=== PATIENT | male | born 1995 | race Caucasian/White ===

== ENCOUNTER 2017-07-09 16:07 | Emergency (ER) | payer SELFPAY ==
[~2017-07-09] VITALS: Ht 190.5 cm; Wt 135.0 kg
[~2017-07-09 16:07] MED LIST: NAPR500 PO; TRAM50 PO
[2017-07-09 16:32] VITALS: BP 162/73; PULSE 80; RESP 16; TEMP 98.4; O2SAT 97
--- NOTE | 2017-07-09 18:12 | PD ---
HPI Chief Complaint: Abdominal Pain Time Seen by Provider: 18:02 Travel History International Travel<30 days: No Contact w/Intl Traveler<30days: No Traveled to known affect area: No History of Present Illness HPI This patient complains of abdominal pain. Started in his right side this morning. Duration one day. Severity was moderate. Has somewhat improved spontaneously. No alleviating factors. No exacerbating factors. Pain radiated down to the suprapubic region. He denies urinary complaints or hematuria or fever or vomiting. He ate today without difficulty. No abdominal surgeries PFSH Past Medical History Immunizations Current: Yes Past Surgical History Other Surgery: Yes (R KNEE, ELBOW) Social History Alcohol Use: No Tobacco Use: No Substance Use: No Allergies-Medications (Allergen,Severity, Reaction): Coded Allergies: No Known Allergies (Verified , 07/09/17) Reported Meds & Prescriptions Reported Meds & Active Scripts Active Review of Systems General / Constitutional: No: Fever Eyes: No: Visual changes HENT: No: Headaches Cardiovascular: No: Chest Pain or Discomfort Respiratory: No: Shortness of Breath Gastrointestinal: Positive: Abdominal Pain Genitourinary: Positive: Flank Pain, No: Dysuria Musculoskeletal: No: Pain Skin: No Rash Neurologic: No: Weakness Psychiatric: No: Depression Endocrine: No: Polydipsia Hematologic/Lymphatic: No: Easy Bruising Physical Exam Narrative GENERAL: Well-nourished, well-developed patient in no apparent distress. SKIN: Focused skin assessment reveals no rash and nodules. Skin is Warm and dry. HEAD: Atraumatic. Normocephalic. EYES: Pupils equal and round. No scleral icterus. No injection or drainage. ENT: No nasal bleeding or discharge. Mucous membranes pink and moist. NECK: Trachea midline. No JVD. CARDIOVASCULAR: Regular rate and rhythm. No murmur appreciated. RESPIRATORY: No accessory muscle use. Clear to auscultation. Breath sounds equal bilaterally. GASTROINTESTINAL: Abdomen soft, non-tender, nondistended. Hepatic and splenic margins not palpable. MUSCULOSKELETAL: No obvious deformities. No clubbing. No cyanosis. No edema. NEUROLOGICAL: Awake and alert. No obvious cranial nerve deficits. Motor grossly within normal limits. Normal speech. PSYCHIATRIC: Appropriate mood and affect; insight and judgment normal. Data Data Last Documented VS Vital Signs Date Time Temp Pulse Resp B/P (MAP) Pulse Ox O2 Delivery O2 Flow Rate FiO2 07/09/17 16:32 98.4 80 16 162/73 (102) 97 Orders Orders Urinalysis - C+S If Indicated (07/09/17 18:06) Ct Abd/Pel W/O Iv Contrast (07/09/17 ) Labs Laboratory Tests Test 07/09/17 18:10 Urine Color YELLOW Urine Turbidity CLEAR Urine pH 6.0 Urine Specific [place] 1.010 Urine Protein NEG mg/dL Urine Glucose (UA) NEG mg/dL Urine Ketones NEG mg/dL Urine Occult Blood NEG Urine Nitrite NEG Urine Bilirubin NEG Urine Leukocyte Esterase NEG Urine Squamous Epithelial Cells 0-5 /hpf Microscopic Urinalysis Comment CULT NOT INDICATED MDM Medical Decision Making Medical Screen Exam Complete: Yes Emergency Medical Condition: Yes Medical Record Reviewed: Yes Differential Diagnosis Kidney stone, sciatica, colitis Narrative Course I have reviewed the patient's electronic medical record. Urinalysis is clean CT of abdomen and pelvis shows no sign of appendicitis or kidney stone or other emergent problem. There is appendicolith but no inflammatory changes to suggest appendicitis Abdomen is soft and benign and nontender Vital signs are normal Recommend primary care follow-up Diagnosis Primary Impression: Abdominal pain Qualified Codes: R10.84 - Generalized abdominal pain Additional Instructions: The patient was advised to follow up with their physician and return if they worsen. Med/Other Pt SpecificInfo: Other Disposition: 01 DISCHARGE HOME Condition: Stable Allan Mckeon MD Jul 09, 2017 18:12
[2017-07-09 18:36] LABS: BILIRUBIN, URINE NEG (NEG); BLOOD, URINE NEG (NEG); GLUCOSE,URINE NEG (NEG); KETONE, URINE NEG (NEG); NITRITE,URINE NEG (NEG); URINE LEUKOCYTE ESTERASE NEG (NEG)
--- NOTE | 2017-07-09 18:39 | RADRPT ---
EXAM DATE/TIME: 07/09/2017 18:18 [facility] COMPARISON: No previous studies available for comparison. INDICATIONS : Right sided abdominal pain radiating to the left. Evaluate for renal stone. ORAL CONTRAST: No oral contrast ingested. RADIATION DOSE: 28.00 CTDIvol (mGy) ; Patient body habitus MEDICAL HISTORY : None SURGICAL HISTORY : None. ENCOUNTER: Initial ACUITY: 1 day PAIN SCALE: 7/10 LOCATION: Bilateral abdomen TECHNIQUE: Volumetric scanning of the abdomen and pelvis was performed. Using automated exposure control and ad justment of the mA and/or kV according to patient size, radiation dose was kept as low as reasonably achievable to obtain optimal diagnostic quality images. DICOM format image data is available electro nically for review and comparison. FINDINGS: LOWER LUNGS: The visualized lower lungs are clear. LIVER: Visualized portions are grossly unremarkable. SPLEEN: Visualized portions grossly unremarkable. PANCREAS: Within normal limits. KIDNEYS: Normal in size and shape. There is no mass, stone, or hydronephrosis. ADRENAL GLANDS: Within normal limits. VASCULAR: There is no aortic aneurysm. BOWEL/MESENTERY: The bowel structures are nondilated. No definite focal wall thickening or inflammatory changes are no sendy. There is an appendicolith at the base of the appendix, however the appendix is nondilated and th ere are no surrounding inflammatory changes. ABDOMINAL WALL: Within normal limits. RETROPERITONEUM: There is no lymphadenopathy. BLADDER: No wall thickening or mass. REPRODUCTIVE: Within normal limits. INGUINAL: There is no lymphadenopathy or hernia. MUSCULOSKELETAL: Within normal limits for patient age. CONCLUSION: Appendicolith at the base of an otherwise normal-appearing appendix. No evidence of kidney stone or hydronephrosis. Doug Armas MD on July 09, 2017 at 18:34 Board Certified Radiologist. This report was verified electronically.
[2017-07-09 18:52] LABS: URINE COLOR YELLOW (YELLW/STRAW)
[2017-07-09 18:53] LABS: SQUAMOUS EPITHELIAL CELL URINE 0-5 /hpf (0-5)
[2017-07-09 20:46] VITALS: BP 147/86
== END 2017-07-09 20:47 | disposition home or self-care (01) ==
LOC: PHED 16:07
DX: R10.84 Generalized abdominal pain (principal)
CPT/HCPCS: 74176; 81001; 99284